=== PATIENT | female | born 1995 | race Caucasian/White ===

== ENCOUNTER 2023-08-12 10:01 | Emergency (ER) | payer SELFPAY | END 2023-08-12 10:51 | disposition home or self-care (01) | LOC: MW.ED 10:01 | DX: L08.9 Local infection of the skin and subcutaneous tissue, unspecified (principal); Z75.8 Other problems related to medical facilities and other health care | CPT/HCPCS: 99282 ==

== ENCOUNTER 2024-10-29 04:44 | Emergency (ER) | payer SELFPAY | END 2024-10-29 06:14 | LOC: MW.ED 04:44 | DX: S09.90XA Unspecified injury of head, initial encounter (principal); I10 Essential (primary) hypertension; F17.210 Nicotine dependence, cigarettes, uncomplicated; W22.8XXA Striking against or struck by other objects, initial encounter; Y93.89 Activity, other specified | CPT/HCPCS: 70450; 70450-26; 72125; 72125-26; 99284-25 ==

== ENCOUNTER 2024-12-31 14:21 | Emergency (ER) | payer SELFPAY | END 2024-12-31 15:12 | disposition home or self-care (01) | LOC: MW.ED 14:21 | DX: Z76.0 Encounter for issue of repeat prescription (principal); Z02.89 Encounter for other administrative examinations; Z79.899 Other long term (current) drug therapy | CPT/HCPCS: 99282; 99283 ==

== ENCOUNTER 2025-01-18 12:10 | Emergency (ER) | payer SELFPAY | END 2025-01-18 13:13 | LOC: MW.ED 12:10 | DX: Z02.89 Encounter for other administrative examinations (principal); Z76.0 Encounter for issue of repeat prescription; I10 Essential (primary) hypertension | CPT/HCPCS: 99283 ==

== ENCOUNTER 2025-04-09 12:56 | Emergency (ER) | payer SELFPAY | END 2025-04-09 13:16 | disposition home or self-care (01) | LOC: MW.ED 12:56 | DX: Z02.89 Encounter for other administrative examinations (principal); Z76.0 Encounter for issue of repeat prescription; I10 Essential (primary) hypertension; Z79.899 Other long term (current) drug therapy | CPT/HCPCS: 99282; 99283 ==